=== PATIENT | male | born 1945 | race Caucasian/White ===

== ENCOUNTER 2023-11-15 | Outpatient (RCR) | payer MEDICARE, SELFPAY | END 2023-12-27 17:00 | disposition home or self-care (01) | LOC: HO.WCC | PROVIDERS: PCP Internal Medicine; Visit Provider Physician Assistant | DX: E11.622 Type 2 diabetes mellitus with other skin ulcer (principal); E11.51 Type 2 diabetes mellitus with diabetic peripheral angiopathy without gangrene; L97.322 Non-pressure chronic ulcer of left ankle with fat layer exposed; I87.2 Venous insufficiency (chronic) (peripheral); I12.9 Hypertensive chronic kidney disease with stage 1 through stage 4 chronic kidney disease, or unspecified chronic kidney disease; N18.2 Chronic kidney disease, stage 2 (mild); Z79.01 Long term (current) use of anticoagulants; Z94.0 Kidney transplant status; Z79.4 Long term (current) use of insulin; Z79.84 Long term (current) use of oral hypoglycemic drugs; Z79.899 Other long term (current) drug therapy | CPT/HCPCS: 11042; 99213 ==

== ENCOUNTER 2024-01-12 14:09 | Outpatient (REF) | payer MEDICARE, SELFPAY ==
--- NOTE | ~2024-01-12 | US_ITS ---
EXAMINATION: NONINVASIVE ASSESSMENT OF THE ARTERIES OF BOTH LOWER EXTREMITIES WITH PVR EXAM AND BILATERAL LOWER EXTREMITY DUPLEX Ines Keys MD CLINICAL INFORMATION: Nonhealing TECHNIQUE: Ankle pulse volume recordings, ankle pressure measurements and ankle brachial indices were obtained of the lower extremity arterial system bilaterally in addition to duplex Doppler techniques with wave form analysis and measurement of velocities in the common femoral, profunda femoral, superficial femoral, popliteal and tibial arteries. The study was performed only at rest. COMPARISON: None FINDINGS: a) AT REST: RIGHT LE. The right ankle-brachial index is: 1.26 * >0.97-1.25 = normal - no significant arterial disease * 0.75-0.96 = mild peripheral arterial disease * 0.5-0.74 = moderate peripheral arterial disease * <0.50 = severe peripheral arterial disease 2. Right ankle pressure: normal. 3. Right ankle PVR waveform: normal. LEFT LE. The left ankle-brachial index is: 1.28 * >0.97-1.25 = normal - no significant arterial disease * 0.75-0.96 = mild peripheral arterial disease * 0.5-0.74 = moderate peripheral arterial disease * <0.50 = severe peripheral arterial disease 2. Left ankle pressure: normal. 3. Left ankle PVR waveform: normal. 4. Left direct duplex Doppler findings: Common femoral artery: 119 cm/s, Multiphasic Profunda femoris artery: 73 cm/s, Multiphasic Superficial femoral artery (proximal): 83 cm/s, Multiphasic Superficial femoral artery (mid): 113 cm/s, Multiphasic Superficial femoral artery (distal): 96 cm/s, Multiphasic Proximal Popliteal artery: 125 cm/s, Multiphasic Mid posterior tibial artery: 90 cm/s, Multiphasic US/US ZEUS complete IMPRESSION: Atherosclerotic calcification bilaterally. There is no evidence of any hemodynamically significant lower extremity arterial disease by pressure, waveform or duplex Doppler criteria at rest.
--- NOTE | ~2024-01-12 | US_ITS ---
EXAMINATION: NONINVASIVE ASSESSMENT OF THE ARTERIES OF BOTH LOWER EXTREMITIES WITH PVR EXAM AND BILATERAL LOWER EXTREMITY DUPLEX Ines Keys MD CLINICAL INFORMATION: Nonhealing TECHNIQUE: Ankle pulse volume recordings, ankle pressure measurements and ankle brachial indices were obtained of the lower extremity arterial system bilaterally in addition to duplex Doppler techniques with wave form analysis and measurement of velocities in the common femoral, profunda femoral, superficial femoral, popliteal and tibial arteries. The study was performed only at rest. COMPARISON: None FINDINGS: a) AT REST: RIGHT LE. The right ankle-brachial index is: 1.26 * >0.97-1.25 = normal - no significant arterial disease * 0.75-0.96 = mild peripheral arterial disease * 0.5-0.74 = moderate peripheral arterial disease * <0.50 = severe peripheral arterial disease 2. Right ankle pressure: normal. 3. Right ankle PVR waveform: normal. LEFT LE. The left ankle-brachial index is: 1.28 * >0.97-1.25 = normal - no significant arterial disease * 0.75-0.96 = mild peripheral arterial disease * 0.5-0.74 = moderate peripheral arterial disease * <0.50 = severe peripheral arterial disease 2. Left ankle pressure: normal. 3. Left ankle PVR waveform: normal. 4. Left direct duplex Doppler findings: Common femoral artery: 119 cm/s, Multiphasic Profunda femoris artery: 73 cm/s, Multiphasic Superficial femoral artery (proximal): 83 cm/s, Multiphasic Superficial femoral artery (mid): 113 cm/s, Multiphasic Superficial femoral artery (distal): 96 cm/s, Multiphasic Proximal Popliteal artery: 125 cm/s, Multiphasic Mid posterior tibial artery: 90 cm/s, Multiphasic US/US arterial duplex LE LT IMPRESSION: Atherosclerotic calcification bilaterally. There is no evidence of any hemodynamically significant lower extremity arterial disease by pressure, waveform or duplex Doppler criteria at rest.
== END 2024-01-12 14:10 | disposition home or self-care (01) ==
LOC: HO.US 14:09
PROVIDERS: PCP Internal Medicine; Visit Provider Nurse Practitioner Family
DX: I87.311 Chronic venous hypertension (idiopathic) with ulcer of right lower extremity (principal); L97.912 Non-pressure chronic ulcer of unspecified part of right lower leg with fat layer exposed; I70.203 Unspecified atherosclerosis of native arteries of extremities, bilateral legs
CPT/HCPCS: 93923; 93926